=== PATIENT | female | born 1985 | race African-American/Black ===

== ENCOUNTER 2020-04-14 00:35 | Observation (INO) | payer MEDICAID, OTHER ==
[~2020-04-14] VITALS: Ht 167.6 cm; Wt 149.7 kg
[2020-04-14 02:51] LABS: CLARITY URINE CLEAR (CLEAR); COLOR URINE YELLOW (YELLOW); KETONES URINE NEGATIVE (NEGATIVE); LEUKOCYTE ESTERASE URINE 2+ (NEGATIVE); NITRITE URINE NEGATIVE (NEGATIVE); OCCULT BLOOD URINE 1+ (NEGATIVE); PH URINE 6.5 (4.5-8.0); PROTEIN URINE TRACE (NEGATIVE); SPECIFIC GRAVITY URINE 1.017 (1.005-1.030)
[2020-04-14] MEDS ORDERED: PNV11TAB MT (03:48)
== END 2020-04-14 03:59 | disposition home or self-care (01) ==
LOC: 8 EST LDRP 00:35
PROVIDERS: ADMIT Obstetrics & Gynecology; ATTEND Obstetrics & Gynecology
DX: O9A.213 Injury, poisoning and certain other consequences of external causes complicating pregnancy, third trimester (principal); O26.853 Spotting complicating pregnancy, third trimester; Z3A.34 34 weeks gestation of pregnancy; W01.0XXA Fall on same level from slipping, tripping and stumbling without subsequent striking against object, initial encounter; Y93.89 Activity, other specified; Y92.89 Other specified places as the place of occurrence of the external cause
CPT/HCPCS: 76805; 76818; 81003; 99281; G0378

== ENCOUNTER 2020-05-17 06:48 | Inpatient (IN) | payer MEDICAID, OTHER ==
[~2020-05-17] VITALS: Ht 170.2 cm; Wt 111.1 kg
[2020-05-17] MEDS: LACTATED RINGERS 1,000 ML IV SCH ×3 (00:35→07:00)
[~2020-05-17 06:48] MED LIST: PNV11TAB MT
[2020-05-17] MEDS ORDERED: DEXT 5%/LR + PITOCIN 20UNITS/L 1,000 ML IV SCH ×2 (07:00→08:11)
[2020-05-17] MEDS ORDERED: RHO(D) IMMUNE GLOBULIN 300 MCG/SYR IM ONE (07:00)
[2020-05-17] MEDS: MAGNESIUM/ALUMINUM HYDROXIDE/SIMETHICONE 30ML UDC PO SCH ×3 (07:30→17:24)
[2020-05-17 07:34] LABS: HEMATOCRIT. 31.3 % (36.0-48.0); HEMOGLOBIN. 10.6 g/dL (12.0-16.0); MEAN CORPUSCULAR HEMOGLOBIN 29.8 pg (28.0-32.0); MEAN CORPUSCULAR VOLUME 88.1 fL (81.0-99.0); MEAN PLATELET VOLUME 7.6 fl (7.4-10.4); PLATELET 195 x1000/uL (130-400); RED BLOOD CELL COUNT 3.55 mill/uL (4.2-5.4); RED CELL DISTRIBUTION WIDTH 13.8 % (11.6-14.6)
[2020-05-17 07:40] LABS: CLARITY URINE CLEAR (CLEAR); COLOR URINE YELLOW (YELLOW); KETONES URINE NEGATIVE (NEGATIVE); LEUKOCYTE ESTERASE URINE 3+ (NEGATIVE); NITRITE URINE NEGATIVE (NEGATIVE); OCCULT BLOOD URINE 2+ (NEGATIVE); PH URINE 6.5 (4.5-8.0); PROTEIN URINE NEGATIVE (NEGATIVE); SPECIFIC GRAVITY URINE 1.015 (1.005-1.030); UROBILINOGEN URINE 0.2 E.U./dL (0.2-1.0)
[2020-05-17 07:45] LABS: INR 0.9; PARTIAL THROMBOPLASTIN TIME 25.9 sec (23.4-31.0); PROTHROMBIN TIME 9.8 sec (9.6-11.0)
[2020-05-17] MEDS: SIMETHICONE 80MG TABLET CHEW PO SCH ×3 (08:00→17:24)
[2020-05-17] MEDS ORDERED: FENTANYL CITRATE/PF 50MCG/ML 2ML VIAL ONE (08:00)
[2020-05-17] MEDS ORDERED: MORPHINE SULFATE/PF 1MG/ML 10ML AMP ONE (08:01)
[2020-05-17 08:02] LABS: *AMPHETAMINES SCREEN URINE NEGATIVE (NEGATIVE); *BARBITURATES SCREEN URINE NEGATIVE (NEGATIVE); *BENZODIAZEPINES SCREEN URINE NEGATIVE (NEGATIVE); *COCAINE SCREEN URINE NEGATIVE (NEGATIVE)
[2020-05-17 08:03] LABS: CANNABINOID URINE SCREEN NEGATIVE (NEGATIVE); METHADONE URINE SCREEN NEGATIVE (NEGATIVE); OPIATES URINE SCREEN NEGATIVE (NEGATIVE); PHENCYCLIDINE URINE SCREEN NEGATIVE (NEGATIVE)
[2020-05-17] MEDS ORDERED: DIPHENHYDRAMINE 25MG CAPSULE PO PRN (08:15)
[2020-05-17] MEDS ORDERED: LANOLIN OINT 7GM TUBE TOP PRN (08:15)
[2020-05-17] MEDS ORDERED: BISACODYL 10MG SUPP PR PRN (08:15)
[2020-05-17] MEDS ORDERED: IBUPROFEN 400MG TABLET PO PRN (08:15)
[2020-05-17] MEDS ORDERED: ONDANSETRON HCL 4MG/2ML INJ IV PRN (08:15)
[2020-05-17] MEDS ORDERED: PENICILLIN G POTASSIUM 2.5 MMU in DEXTROSE 5% WATER 50 ML IV SCH (08:30)
[2020-05-17] MEDS: PRENATAL VIT/FE FUMARATE/FA TABLET PO SCH (09:00)
[2020-05-17 09:13] LABS: PLATELET ESTIMATE NORMAL
[2020-05-17 11:45] VITALS: BP 118/69
[2020-05-17 11:57] LABS: HEPATITIS B SURFACE ANTIGEN NEGATIVE
[2020-05-17 12:15] VITALS: BP 117/65
[2020-05-17 13:15] VITALS: BP 117/67
[2020-05-17] MEDS ORDERED: DIPHENHYDRAMINE 50MG/ML VIAL IV PRN (14:00)
[2020-05-17] MEDS: KETOROLAC 30MG/ML VIAL IV PRN ×2 (16:07→23:28)
[2020-05-17 16:20] VITALS: BP 111/58
[2020-05-17 19:50] VITALS: BP 108/60
[2020-05-17] MEDS ORDERED: DOCUSATE SODIUM 100MG CAPSULE PO SCH (21:00)
[2020-05-18 00:50] VITALS: BP 107/70
[2020-05-18 04:15] VITALS: BP 117/63
[2020-05-18] MEDS: KETOROLAC 30MG/ML VIAL IV PRN ×2 (06:32→06:33)
[2020-05-18 07:01] LABS: BASOPHILS % 0.3 % (0.0-2.0); EOSINOPHILS % 1.4 % (0.0-5.0); HEMATOCRIT. 28.4 % (36.0-48.0); HEMOGLOBIN. 9.5 g/dL (12.0-16.0); LYMPHOCYTES % 13.9 % (20.0-50.0); MEAN CORPUSCULAR HEMOGLOBIN 29.7 pg (28.0-32.0); MEAN CORPUSCULAR VOLUME 88.3 fL (81.0-99.0); MONOCYTES % 13.2 % (2.0-8.0); NEUTROPHILS % 71.2 % (40.0-76.0); PLATELET 175 x1000/uL (130-400); RED BLOOD CELL COUNT 3.21 mill/uL (4.2-5.4); RED CELL DISTRIBUTION WIDTH 13.9 % (11.6-14.6)
[2020-05-18] MEDS: FERROUS SULFATE 325MG TABLET PO SCH ×2 (07:30→12:30)
[2020-05-18 08:00] VITALS: BP 121/62
[2020-05-18] MEDS: IBUPROFEN 800MG TABLET PO PRN ×2 (09:30→19:44)
[2020-05-18] MEDS: HYDROCODONE/ACETAMINOPHEN 5/325MG TABLET PO PRN ×4 (12:17→23:37)
[2020-05-18 16:00] VITALS: BP 115/67
[2020-05-18] MEDS: MAGNESIUM/ALUMINUM HYDROXIDE/SIMETHICONE 30ML UDC PO SCH ×2 (17:30→21:59)
[2020-05-18] MEDS: SIMETHICONE 80MG TABLET CHEW PO SCH ×2 (18:00→21:59)
[2020-05-18 20:20] VITALS: BP 123/63
[2020-05-19] MEDS: IBUPROFEN 800MG TABLET PO PRN ×2 (02:32→08:22)
[2020-05-19 04:00] VITALS: BP 125/80
[2020-05-19] MEDS: HYDROCODONE/ACETAMINOPHEN 5/325MG TABLET PO PRN (05:53)
[2020-05-19] MEDS: MAGNESIUM/ALUMINUM HYDROXIDE/SIMETHICONE 30ML UDC PO SCH (08:21)
[2020-05-19] MEDS: SIMETHICONE 80MG TABLET CHEW PO SCH (08:21)
[2020-05-19] MEDS: PRENATAL VIT/FE FUMARATE/FA TABLET PO SCH (08:21)
[2020-05-19 08:32] VITALS: BP 126/62
== END 2020-05-19 09:30 | disposition home or self-care (01) | DRG 540 ==
LOC: INTOOBSV 06:48 → OBSVTOIN 06:48 → 8 EST LDRP 06:48 → 8EST 11:21
PROVIDERS: ADMIT Obstetrics & Gynecology; ATTEND Obstetrics & Gynecology
PROC: 10D00Z1 Extraction of Products of Conception, Low, Open Approach (ICD-10-PCS; principal; 2020-05-17)
DX: O34.211 Maternal care for low transverse scar from previous cesarean delivery (principal); O77.0 Labor and delivery complicated by meconium in amniotic fluid; Z37.0 Single live birth; Z88.5 Allergy status to narcotic agent; Z3A.39 39 weeks gestation of pregnancy
CPT/HCPCS: 36415; 80305; 81003; 85025; 86592; 86703; 86762; 86850; 86900; 87340; 88307; 99281; J1200; J1885; J2274; J2405; J2540; J2590; J3010; J7060; J7120

== ENCOUNTER 2020-11-10 17:50 | Emergency (ER) | payer OTHER ==
[~2020-11-10] VITALS: Ht 165.1 cm; Wt 95.0 kg
[2020-11-10] MEDS ORDERED: MORPHINE SULFATE 4 MG/ML CPJ (NOT FOR IM USE) IV STA (18:10)
[2020-11-10] MEDS ORDERED: SODIUM CHLORIDE 0.9% 1,000 ML IV ONE ×2 (18:15→20:00)
[2020-11-10 18:38] LABS: BASOPHILS % 0.4 % (0.0-2.0); EOSINOPHILS % 0.3 % (0.0-5.0); HEMATOCRIT. 33.2 % (36.0-48.0); HEMOGLOBIN. 11.1 g/dL (12.0-16.0); LYMPHOCYTES % 11.8 % (20.0-50.0); MEAN CORPUSCULAR HEMOGLOBIN 27.4 pg (28.0-32.0); MEAN CORPUSCULAR VOLUME 82.1 fL (81.0-99.0); MEAN PLATELET VOLUME 7.5 fl (7.4-10.4); MONOCYTES % 12.1 % (2.0-8.0); NEUTROPHILS % 75.4 % (40.0-76.0); PLATELET 224 x1000/uL (130-400); RED BLOOD CELL COUNT 4.05 mill/uL (4.2-5.4); RED CELL DISTRIBUTION WIDTH 14.6 % (11.6-14.6)
[2020-11-10 18:54] LABS: CHLORIDE 102 mEq/L (98-107)
[2020-11-10 19:01] LABS: INR 1.1; PROTHROMBIN TIME 11.6 sec (9.6-11.0)
[2020-11-10 19:07] LABS: HCG SCREEN NEGATIVE
[2020-11-10] MEDS ORDERED: HYDROMORPHONE HCL/PF 2MG/ML CPJ IV ONE (19:15)
[2020-11-10] MEDS ORDERED: IOHEXOL-300 100 ML BOTTLE ONE (20:33)
[2020-11-10 23:42] LABS: CLARITY URINE CLEAR (CLEAR); COLOR URINE YELLOW (YELLOW); KETONES URINE 2+ (NEGATIVE); LEUKOCYTE ESTERASE URINE TRACE (NEGATIVE); NITRITE URINE NEGATIVE (NEGATIVE); OCCULT BLOOD URINE 3+ (NEGATIVE); PROTEIN URINE NEGATIVE (NEGATIVE); SPECIFIC GRAVITY URINE 1.042 (1.005-1.030)
[2020-11-11] MEDS ORDERED: OXYCODONE HCL/ACETAMINOPHEN 5/325MG TABLET PO ONE
[2020-11-11] MEDS ORDERED: KETOROLAC 15MG/ML VIAL IV ONE
[2020-11-11] MEDS ORDERED: CEFTRIAXONE 1 G PREMIX 50 ML IV ONE (00:30)
[2020-11-11] MEDS ORDERED: OXYC-523 MT (00:39)
[2020-11-11] MEDS ORDERED: CEFP200T13 MT (00:39)
[2020-11-11 01:30] VITALS: BP 140/80
== END 2020-11-11 01:50 | disposition home or self-care (01) ==
LOC: ER 17:50
DX: N39.0 Urinary tract infection, site not specified (principal); N12 Tubulo-interstitial nephritis, not specified as acute or chronic; N20.0 Calculus of kidney; F12.10 Cannabis abuse, uncomplicated; Z88.5 Allergy status to narcotic agent
CPT/HCPCS: 36415; 74177; 76705; 80053; 81003; 83605; 83690; 84703; 85025; 85610; 93005; 96361; 96365; 96375; 99285; J0696; J1170; J1885; J2270; J7030; Q9967